=== PATIENT | female | born 1985 ===

== ENCOUNTER 2017-01-04 21:25 | Emergency (ER) | payer SELFPAY ==
[2017-01-04 22:42] LABS: URINE MUCUS NONE SEEN (Up to 25%); URINE RBC NONE SEEN (0-5/hpf)
[2017-01-04 22:49] LABS: BASOPHIL# 0.1 X 10^3uL (0.0-0.1); BASOPHILS 0.9 % (0.0-2.0); EOSINOPHILS 1.3 % (0.0-6.0); EOSINOPHILS# 0.1 X 10^3uL (0.0-0.4); HEMATOCRIT 45.1 % (36.0-48.0); HEMOGLOBIN 15.5 g/dL (12.0-16.0); LYMPHOCYTES 42.5 % (20.0-40.0); LYMPHOCYTES# 2.5 X 10^3uL (0.8-3.8); MEAN CORPUS. HGB CONCENTRATION 34.4 g/dL (32.0-36.0); MEAN CORPUSCULAR HEMOGLOBIN 33.7 pg (29.0-35.0); MONOCYTES 7.4 % (2.0-10.0); MONOCYTES# 0.4 X 10^3uL (0.2-1.0); NEUTROPHILS 47.9 % (54.0-75.0); NEUTROPHILS# 2.7 X 10^3uL (2.6-6.7); PLATELET COUNT 333 X 10^3uL (130-440); RED BLOOD COUNT 4.61 X 10^6uL (4.20-6.10); RED CELL DISTRIBUTION WIDTH 14.9 % (11.5-14.5); WHITE BLOOD COUNT 5.8 X 10^3uL (3.9-10.7)
[2017-01-04] MEDS ORDERED: ONDANSETRON HCL 4 MG/2 ML VIAL ONE (22:58)
[2017-01-04] MEDS ORDERED: LORazepam 0.5 MG TABLET ONE (22:58)
[2017-01-04 23:02] LABS: BLOOD UREA NITROGEN 5 mg/dL (7-17); CALCIUM 8.5 mg/dL (8.4-10.2); CHLORIDE 103 mmol/L (98-107); CREATININE 0.5 mg/dL (0.5-1.0); EST GLOMERULAR FILTRATION RATE > 60 mL/min; ETHYL ALCOHOL 162 mg/dL (<10); GLUCOSE 98 mg/dL (70-100); POTASSIUM 3.6 mmol/L (3.5-5.1); SODIUM 140 mmol/L (137-145)
[2017-01-04 23:18] LABS: URINE APPEARANCE SLIGHTLY CLOUDY; URINE COLOR DARK YELLOW
[2017-01-04 23:19] LABS: URINE BILIRUBIN NEGATIVE (NEGATIVE); URINE BLOOD TRACE (NEGATIVE); URINE GLUCOSE NORMAL (NEGATIVE); URINE KETONE 5mg/dL (NEGATIVE); URINE LEUKOCYTE ESTERASE NEGATIVE (NEGATIVE); URINE NITRITE NEGATIVE (NEGATIVE); URINE PROTEIN 10mg/dL (trace) (NEG - TRACE); URINE UROBILINOGEN 0.2mg/dL (Normal) (NEG-1mg/dL)
[2017-01-04 23:20] LABS: URINE SQUAMOUS EPITHELIAL CELL 0-5/hpf (<= 15/hpf); URINE WBC 0-4/hpf (0-4/hpf)
--- NOTE | 2017-01-04 23:48 | ER PHYSICIAN DOCUMENTATION ---
Physician Documentation [facility] Name:Claudia Ocampo Age:31 yrs Sex:Female :1985 Arrival Date:01/04/2017 Time:21:25 Bed3 Private MD: Jass Dawkins Disposition: 01/04/17 23:38 Discharged to Home/Self Care. Impression: Dehydration, Abdominal Pain, Unspecified, Alcohol (ETOH) Intoxication, Nondependent. - Condition is Good. - Discharge Instructions: DEHYDRATION (7y-Adult), Abdomen - ABDOMINAL PAIN, Unknown Cause, (Female), Abuse, Alcohol - ALCOHOL INTOXICATION. - Medical Reconciliation form form. - Follow up: Private Physician; When: 2 - 3 days; Reason: Recheck today's complaints, Continuance of care. - Problem is new. - Symptoms are resolved. - Notes: Drink 2 - 3 quarts of water every day. Avoid all Alcohol. Follow up with your doctor for a recheck in 4 - 5 days. HPI: 01/04 21:40 This 31 yrs old Unknown Female presents to ER via Private Vehicle with complaints of cd Abdominal Pain. 21:40 The patient presents with abdominal pain in the lower abdomen, in suprapubic region. cd Onset: The symptoms/episode began/occurred acutely, today. The symptoms do not radiate. Associated signs and symptoms: Pertinent positives: anorexia, nausea, Pertinent negatives: blood in stools, diarrhea, dysuria, fever, shortness of breath, vomiting. The symptoms are described as constant, dull. Severity of pain: At its worst the pain was moderate in the emergency department the pain is unchanged. Patient was treated for a UTI 7 days ago with an unknown Antibiotic for 5 days. She does not feel better. She has had racing thoughts, anxiety and insomnia and came to [place] to visit a friend. She has been drinking a lot of alcohol today (5 drinks) and feels depressed. She denies suicidal ideation, hallucinations or psychotic features. She denies any history of Bipolar Illness but feels she has anxiety and depression. She states she has had problems with excessive alcohol intake in binges.. Historical: - Allergies: No known drug Allergies; - Home Meds: 1. None - PMHx: GERD; ANXIETY; - PSHx: gastric sleeve; - Tetanus: unknown. - Ebola Screening: : Patient negative for fever greater than or equal to 101.5 degrees Fahrenheit, and additional compatible Ebola Virus Disease symptoms. Patient denies exposure to infectious person. Patient denies travel to an Ebola-affected area in the 21 days before illness onset. No symptoms or risks identified at this time. . - Immunization history: Unable to Obtain. - Social history: Smoking status: Patient uses tobacco products, current some day smoker. Patient uses alcohol patient/guardian reports recent binge of alcohol consumption. ROS: 23:01 ENT: Negative for injury, pain, epistaxis and discharge. cd Neck: Negative for injury, pain, stiffness and swelling. Cardiovascular: Negative for chest pain, palpitations, edema and pleuritic pain. Respiratory: Negative for shortness of breath, dyspnea on exertion, cough, sputum production, wheezing, hemoptysis and pleuritic chest pain. Back: Negative for injury, pain or muscle spasms. MS/Extremity: Negative for injury, deformity, edema, calf tenderness, pain or coldness. Skin: Negative for injury, rash, itching and discoloration. 23:01 Neuro: Negative for headache, weakness, numbness, tingling, and seizure. cd 23:01 Constitutional: Positive for poor PO intake, Negative for chills, fever. 23:01 Abdomen/GI: Positive for abdominal pain, nausea, anorexia, of the suprapubic area, Negative for vomiting, diarrhea, constipation, hematemesis, black/tarry stool, rectal bleeding. 23:01 : Positive for urinary symptoms, pelvic pain, Negative for flank pain, foul smelling urine. 23:01 All other systems are negative. Exam: Eyes: Pupils equal round and reactive to light, extra-ocular motions intact. Lids and lashes normal. Conjunctiva and sclera are non-icteric and not injected. Cornea within normal limits. Periorbital areas with no swelling, redness, or edema. Neck: Trachea midline, no thyromegaly or masses palpated, and no cervical lymphadenopathy. Supple, full range of motion without nuchal rigidity, or vertebral point tenderness. No Meningismus. 23:01 Chest/axilla: Normal chest wall appearance and motion. Nontender with no deformity. cd No lesions are appreciated. 23:01 Constitutional: The patient appears alert, awake, non-diaphoretic, non-toxic, well developed, well nourished, anxious. 23:01 ENT: Mouth: Lips: dry, Oral mucosa: dry, Breath odor: ETOH. 23:01 Cardiovascular: Rate: tachycardic, Rhythm: regular, Pulses: no pulse deficits are appreciated, Heart sounds: normal. 23:01 Respiratory: the patient does not display signs of respiratory distress, Respirations: normal, no acute changes, Breath sounds: are normal, clear throughout. 23:01 Abdomen/GI: Inspection: abdomen appears normal, Bowel sounds: normal, active, Palpation: mild abdominal tenderness, in the suprapubic area, mass, is not appreciated, rebound tenderness, is not appreciated, voluntary guarding, is not appreciated, involuntary guarding, is not appreciated, no appreciated organomegaly, Indicators: McBurney's point is not tender, Rocha's sign is negative. 23:01 : CVA tenderness, is absent, Rectal exam: is not applicable. 23:01 Musculoskeletal/extremity: Exam is negative for acute changes. 23:01 Skin: Exam negative for acute changes. 23:01 Neuro: Orientation: is normal, Mentation: is normal, Memory: is normal, Cranial nerves: CN II- XII are normal as tested, Motor: is normal, Sensation: is normal. Vital Signs: 21:50 BP 119 / 68; Pulse 114; Resp 20; Temp 97.5; Pulse Ox 96% on R/A; Pain 7/10; rs 23:00 BP 93 / 42 (auto/); sc1 23:04 Pulse Ox 95% ; sc1 23:34 BP 104 / 53 (auto/); sc1 23:34 Pulse 89; Resp 18; Pulse Ox 93% on R/A; sc1 [place] Coma Score: 23:01 Eye Response: spontaneous(4). Verbal Response: oriented(5). Motor Response: obeys cd commands(6). Total: 15. MDM: 21:50 Data interpreted: Pulse oximetry: on room air is 96 %. Interpretation: normal. cd 22:00 Differential diagnosis: diverticulitis, Pyelonephritis, Ureterolithiasis, urinary tract cd infection, dehydration, Alcoholism, Bipolar Illness, Depression, Anxiety. 22:05 Data reviewed: vital signs, nurses notes, and as a result, I will continue to observe cd the patient, administer IV fluids, NS bolus, NS maintenence, prescribe sedation medication, lorazepam. 22:14 Patient medically screened. 23:36 Counseling: I had a detailed discussion with the patient and/or guardian regarding: the cd historical points, exam findings, and any diagnostic results supporting the discharge/admit diagnosis, lab results, the need for outpatient follow up, for a recheck, with the patient's primary care provider, to return to the emergency department if symptoms worsen or persist or if there are any questions or concerns that arise at home. 23:37 Response to treatment: the patient's symptoms have markedly improved after treatment, cd the patient's symptoms have resolved after treatment, the patient's pain is gone, the patient is now symptom free, patient is well hydrated. and as a result, I will discharge patient. 01/04 23:03 Order name: BASIC METABOLIC PANEL EDWA 01/04 23:08 Interpretation: Normal. 01/04 23:03 Order name: ETHYL ALCOHOL EDWA 01/04 23:07 Interpretation: Abnormal: ETHYL ALCOHOL 162. 01/04 23:18 Order name: CBC AUTO DIF, MDIF/RMOR IF IND EDWA 01/04 23:28 Interpretation: Normal. 01/04 23:21 Order name: UA W/ MICRO -CULTURE IF IND; Complete Time: 23:29 EDWA 01/04 23:29 Interpretation: Normal Except: URINE KETONE 5mg/dL; URINE BLOOD TRACE; URINE BACTERIA cd 10-20 ORGANISMS/hpf; Dehydration, UTI, Positive Clue Cells. 01/05 00:14 Order name: HCG, SERUM EDMS Dispensed Medications: Completed: NS 0.9% 1000 ml IV at bolus once 22:05 Drug: NS 0.9% 1000 ml; Volume: 1000 ml; Route: IV; Rate: bolus; Site: right forearm; rs Delivery: [place] Tubing; 22:57 Follow up: IV Status: Completed infusion; IV Intake: 1000ml rs 22:40 Drug: NS 0.9% 1000 ml; Volume: 1000 ml; Route: IV; Rate: bolus; Site: right forearm; rs Delivery: [place] [facility]ing; 23:47 Follow up: IV Status: Completed infusion; IV Intake: 1000ml sc1 22:45 Drug: Zofran 4 mg; Route: IVP; Rate: 2 mg/min; Infused Over: 2 mins; Site: right rs forearm; 23:35 Follow up: Response: No adverse reaction sc1 22:45 Drug: Ativan 0.5 mg; Route: PO; rs 23:36 Follow up: Response: No adverse reaction; Anxiety decreased or1 Signatures: Bree Allison RN RN rs Jannet Choi RN RN or1 Jass Jorgensen MD MD
--- NOTE | 2017-01-04 23:48 | ER NURSING DOCUMENTATION ---
Nurse's Notes [facility] ([place], [place]) Name:Claudia Ocampo Age:31 yrs Sex:Female :1985 Arrival Date:01/04/2017 Time:21:25 Bed3 Private MD: Diagnosis:Dehydration;Abdominal Pain, Unspecified;Alcohol (ETOH) Intoxication, Nondependent Presentation: 01/04 21:45 Presenting complaint: Patient states: Treated for UTI 3 weeks ago, took abx BID x 5 rs days, unknown med. Never felt improvement. Feeling flushed but not feverish or chills. Low back pain, burning, frequency, and urgency. No n/v. Also having trouble with GERD. Hx of GERD and stomach sleeve. Has been drinking ETOH yesterday and today. Has been binging x 2 years and wants to stop. Recent hx of stress, insomnia, depression, anxiety. C/O feeling dehydrated, shaky. Transition of care: patient was not received from another setting of care. 21:45 Method Of Arrival: Private Vehicle rs 21:57 Acuity: JOSEPH 3 sc1 Triage Assessment: 21:50 General: Appears uncomfortable, well developed, well nourished, well groomed, Behavior rs is anxious, cooperative, pleasant, Smells of alcohol. Pain: Complains of pain in suprepubic and lower back Pain does not radiate. Quality of pain is described as aching. Neuro: No deficits noted. Level of Consciousness is awake, alert, Oriented to person, place, time, event, Speech is normal. Cardiovascular: Capillary refill < 3 seconds Pulses are 3+ in left radial artery. Respiratory: No deficits noted. Respiratory effort is even, unlabored, Respiratory pattern is regular, symmetrical, Breath sounds are clear bilaterally. Denies cough, shortness of breath. GI: Abdomen is non- distended obese, Bowel sounds present X 4 quads. Abd is soft and non tender X 4 quads. Reports epigastric pain, indigestion. : Urine is clear, Reports burning with urination since 3 weeks. urgency urinary frequency. Derm: No deficits noted. Skin is dry, Skin temperature is warm. Historical: - Allergies: No known drug Allergies; - Home Meds: 1. None - PMHx: GERD; ANXIETY; - PSHx: gastric sleeve; - Tetanus: unknown. - Ebola Screening: : Patient negative for fever greater than or equal to 101.5 degrees Fahrenheit, and additional compatible Ebola Virus Disease symptoms. Patient denies exposure to infectious person. Patient denies travel to an Ebola-affected area in the 21 days before illness onset. No symptoms or risks identified at this time. . - Immunization history: Unable to Obtain. - Social history: Smoking status: Patient uses tobacco products, current some day smoker. Patient uses alcohol patient/guardian reports recent binge of alcohol consumption. Screenin:55 Infectious Disease Risk None. Abuse screen: Denies threats or abuse. Nutritional rs screening: No deficits noted. Assessment: 22:53 Reassessment: Patient states feeling better. Patient states symptoms have improved. rs Vital Signs: 21:50 BP 119 / 68; Pulse 114; Resp 20; Temp 97.5; Pulse Ox 96% on R/A; Pain 7/10; rs 23:00 BP 93 / 42 (auto/); sc1 23:04 Pulse Ox 95% ; sc1 23:34 BP 104 / 53 (auto/); sc1 23:34 Pulse 89; Resp 18; Pulse Ox 93% on R/A; sc1 [place] Coma Score: 23:01 Eye Response: spontaneous(4). Verbal Response: oriented(5). Motor Response: obeys cd commands(6). Total: 15. ED Course: 21:29 Patient arrived in ED. ma1 21:50 Notified ED Physician of patient's arrival and chief complaint. Dr. Jorgensen notified. Arm rs band placed on Bed in low position Call Light in Reach Gowned HOB Elevated Side rails up x1. 21:50 Door closed. Noise minimized. Visitors limited. Lights dimmed. Verbal reassurance rs given. Warm blanket given. Diet: Patient is NPO. 21:57 Triage completed. sc1 22:14 Jass Jorgensen MD is Attending Physician. cd 22:39 Jannet Choi, RN is Primary Nurse. sc1 22:51 Valuables Remains with patient. Pulse Ox - RN Monitoring Only NIBP On - RN Monitoring rs Only. 22:52 Inserted peripheral IV: 20 gauge in right forearm and blood collected. Missed attempts: rs 22 gauge in left wrist. 22:53 Resting quietly. rs 23:39 Discontinued IV intact, bleeding controlled, pressure dressing applied, No sc1 redness/swelling at site. Administered Medications: Completed: NS 0.9% 1000 ml IV at bolus once 22:05 Drug: NS 0.9% 1000 ml; Volume: 1000 ml; Route: IV; Rate: bolus; Site: right forearm; rs Delivery: [place] Tubing; 22:57 Follow up: IV Status: Completed infusion; IV Intake: 1000ml rs 22:40 Drug: NS 0.9% 1000 ml; Volume: 1000 ml; Route: IV; Rate: bolus; Site: right forearm; rs Delivery: [place] Tubing; 23:47 Follow up: IV Status: Completed infusion; IV Intake: 1000ml az1 22:45 Drug: Zofran 4 mg; Route: IVP; Rate: 2 mg/min; Infused Over: 2 mins; Site: right rs forearm; 23:35 Follow up: Response: No adverse reaction sc1 22:45 Drug: Ativan 0.5 mg; Route: PO; rs 23:36 Follow up: Response: No adverse reaction; Anxiety decreased sc1 Intake: 22:57 IV: 1000ml; Total: 1000ml. rs 23:47 IV: 1000ml; Total: 2000ml. az1 Outcome: 23:38 Discharge ordered by . jluis 23:46 Discharged to home ambulatory. az1 23:46 Condition: improved 23:46 Discharge instructions given to patient, Instructed on discharge instructions, follow up and referral plans. Demonstrated understanding of instructions. 23:47 Patient left the ED. az1 Signatures: Bree Allison RN RN rs Jannet Choi RN RN az1 Jass Jorgensen MD MD cd [place], [facility]
== END 2017-01-04 23:47 | disposition home or self-care (01) ==
LOC: EEVIPCON 21:25 → ER 21:25
DX: E86.0 Dehydration (principal); R10.30 Lower abdominal pain, unspecified; F10.129 Alcohol abuse with intoxication, unspecified; R11.0 Nausea
CPT/HCPCS: 80048; 80320; 81001; 84703; 85025; 87086; 96361; 96374; 99283; J2405